=== PATIENT | male | born 2000 | race Caucasian/White ===

== ENCOUNTER 2021-01-13 17:41 | Emergency (ER) | payer OTHER ==
[~2021-01-13] VITALS: Ht 167.6 cm; Wt 75.0 kg
[2021-01-13 18:45] VITALS: BP 122/86; PULSE 67; TEMP 98.7
== END 2021-01-13 18:45 | disposition home or self-care (01) ==
LOC: COL.ER 17:41
DX: S06.0X0A Concussion without loss of consciousness, initial encounter (principal); S00.91XA Abrasion of unspecified part of head, initial encounter; V00.831A Fall from motorized mobility scooter, initial encounter; Y93.55 Activity, bike riding